=== PATIENT | male | born 1995 | race Asian ===

== ENCOUNTER 2016-10-25 21:51 | Emergency (ER) | payer BC ==
[2016-10-25] MEDS ORDERED: NS 0.9% 1000 ML* 1,000 ML IV ONE (23:13)
--- NOTE | 2016-10-26 00:21 | ED ---
Headache - HPI Summary HPI Summary: 21M presents with worst headache of life today. He states that headache started just as climax during sex and last for 4 hours and was super intense. He states he has gotten headaches for past week during climaxing but only last an hour and not that intense. He state that advil normal reliefs them. He states the headache currently is 3/10 and is dull. He denies any n/v, photophobia, or change in vision. He does not have a history of headache. His grandmother did have aneurysm. He denies any fever or sinus pressure or ear pain. - History Of Current Complaint Chief Complaint: EDHeadache Stated Complaint: HEADACHE Time Seen by Provider: 10/25/16 22:51 - Allergies/Home Medications Allergies/Adverse Reactions: Allergies Allergy/AdvReac Type Severity Reaction Status Date / Time No Known Allergies Allergy Verified 10/25/16 22:00 PMH/Surg Hx/FS Hx/Imm Hx Endocrine/Hematology History: Denies: Hx Anticoagulant Therapy Cardiovascular History: Denies: Hx Hypertension Infectious Disease History: No Infectious Disease History: Denies: Traveled Outside the [place] in Last 30 Days - Family History Known Family History: Positive: Other - aneurysm - Social History Alcohol Use: Occasionally Substance Use Type: Reports: None Smoking Status (MU): Never Smoked Tobacco Review of Systems Negative: Fever Negative: Chest Pain Negative: Shortness Of Breath Negative: Vomiting, Nausea Positive: Headache All Other Systems Reviewed And Are Negative: Yes Physical Exam Triage Information Reviewed: Yes Vital Signs On Initial Exam: Initial Vitals Temp Pulse Resp BP Pulse Ox 97.6 F 83 16 103/87 99 10/25/16 21:55 10/25/16 21:55 10/25/16 21:55 10/25/16 21:55 10/25/16 21:55 Vital Signs Reviewed: Yes Appearance: Positive: Well-Appearing Skin: Positive: Warm, Dry Head/Face: Positive: Normal Head/Face Inspection Eyes: Positive: Normal, EOMI, LEN, Conjunctiva Clear ENT: Positive: Normal ENT inspection, Pharynx normal, TMs normal Respiratory/Lung Sounds: Positive: Clear to Auscultation, Breath Sounds Present Cardiovascular: Positive: Normal, RRR Neurological: Positive: Sensory/Motor Intact, Alert, Oriented to Person Place, Time, CN Intact II-III - [place] Coma Scale Best Eye Response: 4 - Spontaneous Best Motor Response: 6 - Obeys Commands Best Verbal Response: 5 - Oriented Coma Scale Total: 15 Diagnostics - Vital Signs Vital Signs Temp Pulse Resp BP Pulse Ox 10/25/16 23:00 98.6 F 72 18 145/88 100 10/25/16 21:55 97.6 F 83 16 103/87 99 - Laboratory Result Diagrams: 10/26/16 00:01 10/26/16 00:01 Lab Statement: Any lab studies that have been ordered have been reviewed, and results considered in the medical decision making process. - CT head CT Interpretation: No Acute Changes - normal brain. no hemmorrhage CT Interpretation Completed By: Radiologist Re-Evaluation - Re-Evaluation First Eval Re-Evaluation Time: :16 Change: Improved Comment: headache removed, IV infilitrate, patient refused another IV so CTA unable to be performed Headache Course/Dx - Course Course Of Treatment: 21M presents with worst headache of life today. happened during climax of sex and lasted for 4 hours when become dull in pain. has been having headaches during climax for past week that relieved by ibuprofen. denies any other symptoms. normal neuro exam. CT brain normal. wanted to do LP but patient refused. so decided to do CTA but IV inflitrated and patient refused another IV so d/c home explaining can not definitely know that is no bleed. patient understands and agrees with plan - Diagnoses Differential Diagnosis/HQI/PQRI: Migraine, Subarachnoid Hemorrhage, Tension Headache Provider Diagnoses: Headache Discharge - Discharge Plan Condition: Good Disposition: HOME Patient Education Materials: General Headache (ED) Referrals: [facility] [Primary Care Provider] - Additional Instructions: Take tyenlol or ibuprofen for pain every 6 hours as needed Follow up with neurology back home Return to ED if develop any new or worsening symptoms
[2016-10-26 00:27] LABS: ALT 13 U/L (7-52); Albumin 4.7 g/dL (3.2-5.2); Alkaline Phosphatase 62 U/L (34-104); BUN/Creatinine Ratio 15.7 (8-20); Blood Urea Nitrogen 14 mg/dL (6-24); CO2 Carbon Dioxide 25 mmol/L (22-32); Calcium 9.5 mg/dL (8.6-10.3); Chloride 100 mmol/L (101-111); EGFR African American 137.5 (>60); EGFR Non-African American 106.9 (>60); Globulin 3.4 g/dL (2-4); Glucose 125 mg/dL (70-100); Sodium 134 mmol/L (133-145); Total Protein 8.1 g/dL (6.4-8.9)
[2016-10-26 00:38] LABS: Hematocrit 44 % (42-52); Hemoglobin 14.9 g/dl (14.0-18.0); Mean Corpuscular HGB Conc 34 g/dl (31-36); Mean Corpuscular Hemoglobin 29 pg (27-31); Mean Corpuscular Volume 86 fL (80-94); Mean Platelet Volume 9 um3 (7.4-10.4); Red Blood Count 5.17 10^6/ul (4.0-5.4); Red Cell Distribution Width 14 % (10.5-15); White Blood Count 10.5 10^3/ul (3.5-10.8)
[2016-10-26] MEDS ORDERED: Iohexol 350* (CONTRAST) 500 ML MDV IV ONE (00:51)
[2016-10-26 01:30] VITALS: BP 145/104
--- NOTE | 2016-10-26 07:50 | RAD ---
HISTORY: Severe headache COMPARISONS: None TECHNIQUE: Multiple contiguous axial CT scans were obtained of the head without intravenous contrast. FINDINGS: HEMORRHAGE/INFARCT: There is no hemorrhage or acute infarct. MASSES/SHIFT: There is no mass or shift. EXTRA-AXIAL SPACES: There are no extra-axial fluid collections. SULCI AND VENTRICLES: The sulci and ventricles are normal in size and position for the patient's stated age. CEREBRUM: There are no focal parenchymal abnormalities. BRAINSTEM: There are no focal parenchymal abnormalities. CEREBELLUM: There are no focal parenchymal abnormalities. VESSELS: The vessels are grossly normal. PARANASAL SINUSES: The paranasal sinuses are clear. ORBITS: The orbits are unremarkable. BONES AND SOFT TISSUE: No bone or soft tissue abnormalities are noted. OTHER: None IMPRESSION: NO ACUTE INTRACRANIAL PATHOLOGY.
== END 2016-10-26 01:32 | disposition home or self-care (01) ==
LOC: ED 21:51
DX: R51 Headache (principal)
CPT/HCPCS: 36415; 70450; 80053; 85025; 99283